=== PATIENT | female | born 1970 | race Caucasian/White ===

== ENCOUNTER 2020-02-27 05:58 | Inpatient (IN) ==
[2020-02-27] MEDS ORDERED: HYDROmorphone 2 MG/1 ML VIAL IV STA (06:08)
[2020-02-27] MEDS ORDERED: PANTOPRAZOLE 40 MG VIAL IV STA (06:08)
[2020-02-27] MEDS ORDERED: SODIUM CHLORIDE 0.9% 2,000 ML IV STA (06:08)
[2020-02-27] MEDS ORDERED: ONDANSETRON 4 MG/2 ML VIAL IV STA (06:08)
[2020-02-27 06:58] LABS: Bacteria,Urine Occasional /HPF (Few); Bilirubin,Urine Negative (Negative); Blood, Urine Negative (Negative); Glucose,Urine (UA) >=500 mg/dL (Negative); Ketones,Urine 20 mg/dL (Negative); Nitrite,Urine Negative (Negative); Protein,Urine Negative; RBC,Urine <1 /HPF (0-4); Squamous Epithelial Cell,Urine Occasional /HPF (0-10); Urine Appearance CLEAR (Clear); Urine Color Yellow (Yellow); Urine Urobilinogen < 2.0 EU/DL (0.2-1.0); WBC,Urine <1 /HPF (0-6)
[2020-02-27 07:40] LABS: Basophils % 0.2 % (0.0-0.8); Hematocrit 43.3 VOL% (35.7-47.0); Immature Granulocytes % 0.4 %; Immature Granulocytes Absolute 0.04 #; Mean Corpuscular HGB Conc 34.6 GM/DL (32-36); Mean Corpuscular Volume 86.8 FL (87-102); Mean Platelet Volume 11.3 FL (9.6-12.0); Monocytes % 2.5 % (1.7-12.7); Neutrophils % 58.9 % (38.7-73.9); Platelet Count 141 T/CUMM (130-400); Red Blood Count 4.99 MC/CUMM (3.8-5.5); Red Cell Distribution Width 12.8 % (9.3-17.3); White Blood Count 10.5 T/CUMM (4-12)
[2020-02-27 07:54] LABS: Albumin 3.8 G/DL (3.4-5.0); Bilirubin,Total 3.5 MG/DL (0.2-1.0); Calcium 8.1 MG/DL (8.5-10.1); Osmolality,Calculated 287.8 MOS/KG (273-304); Total Protein 6.5 G/DL (6.4-8.3)
[2020-02-27 08:05] LABS: Risk Ratio 2.89; VLDL CHOLESTEROL 19.6 MG/DL
[2020-02-27] MEDS ORDERED: GLUCAGON 1 MG VIAL IM PRN (11:04)
[2020-02-27] MEDS ORDERED: ONDANSETRON 4 MG/2 ML VIAL IV PRN (11:04)
[2020-02-27] MEDS ORDERED: DEXTROSE 50% 25 GM/50 ML VIAL IV PRN (11:04)
[2020-02-27] MEDS ORDERED: HYDROmorphone 2 MG/1 ML VIAL IV PRN ×3 (11:13→12:19)
[2020-02-27] MEDS ORDERED: SODIUM CHLORIDE 0.9% 1,000 ML IV SCH (11:30)
[2020-02-27] MEDS: INSULIN LISPRO 100 UNIT/ML SUBCUT SCH ×3 (12:35→21:00)
[2020-02-27] MEDS: PIPERACILLIN/TAZOBACTAM 3,375 MG in SODIUM CHLORIDE 0.9% 100 ML IV SCH ×2 (12:48→20:49)
[2020-02-27] MEDS: SODIUM CHLORIDE 0.9% 1,000 ML IV SCH ×2 (12:48→20:47)
[2020-02-28] MEDS: SODIUM CHLORIDE 0.9% 1,000 ML IV SCH ×3 (05:12→21:45)
[2020-02-28] MEDS: PIPERACILLIN/TAZOBACTAM 3,375 MG in SODIUM CHLORIDE 0.9% 100 ML IV SCH ×3 (05:13→21:51)
[2020-02-28 06:03] LABS: Basophils % 0.2 % (0.0-0.8); Eosinophils # 0.1 10*3/uL (0.0-0.87); Eosinophils % 1.4 % (0.00-10.9); Hematocrit 39.4 VOL% (35.7-47.0); Hemoglobin 13.2 GM/DL (12.0-16.0); Immature Granulocytes % 0.2 %; Immature Granulocytes Absolute 0.02 #; Lymphocytes # 3.8 10*3/uL (1.4-4.0); Lymphocytes % 44.9 % (21.3-54.2); Mean Corpuscular HGB Conc 33.5 GM/DL (32-36); Mean Corpuscular Volume 89.7 FL (87-102); Mean Platelet Volume 11.9 FL (9.6-12.0); Monocytes % 5.6 % (1.7-12.7); Neutrophils % 47.7 % (38.7-73.9); Platelet Count 116 T/CUMM (130-400); Red Blood Count 4.39 MC/CUMM (3.8-5.5); Red Cell Distribution Width 13.1 % (9.3-17.3); White Blood Count 8.4 T/CUMM (4-12)
[2020-02-28 06:31] LABS: Bilirubin,Total 1.1 MG/DL (0.2-1.0); Osmolality,Calculated 281.5 MOS/KG (273-304); Total Protein 5.7 G/DL (6.4-8.3)
[2020-02-28] MEDS ORDERED: cefOXitin 2,000 MG in SYRINGE 1 EACH IV ONE (08:00)
[2020-02-28] MEDS ORDERED: INDOMETHACIN SUPP 50 MG SUPP RECTAL ONE (08:00)
[2020-02-28] MEDS: INSULIN LISPRO 100 UNIT/ML SUBCUT SCH ×4 (08:05→22:06)
[2020-02-28] MEDS: LOSARTAN 25 MG TABLET PO SCH (09:09)
[2020-02-28] MEDS: ASPIRIN EC 81 MG TABLET PO SCH (09:10)
[2020-02-28] MEDS: CITALOPRAM 20 MG TABLET PO SCH (09:10)
[2020-02-28] MEDS ORDERED: POTASSIUM CHLORIDE 20 MEQ TABLET PO ONE (12:00)
[2020-02-28] MEDS ORDERED: TISSUE ADHESIVE 1 EACH APPLICATOR TOP ONE ×2 (12:11→13:47)
[2020-02-28] MEDS ORDERED: BUPIVACAINE MPF 0.25% 30 ML VIAL ONE (12:11)
[2020-02-28] MEDS ORDERED: LIDOCAINE 1%/EPI INJ 20 ML VIAL ONE (12:12)
[2020-02-28] MEDS ORDERED: SUCCINYLCHOLINE 200 MG/10 ML VIAL ONE (12:21)
[2020-02-28] MEDS ORDERED: propofoL 200 MG/20 ML VIAL IV ONE (12:21)
[2020-02-28] MEDS ORDERED: LIDOCAINE 2% 5 ML VIAL ONE (12:21)
[2020-02-28] MEDS ORDERED: ROCURONIUM 50 MG/5 ML VIAL IV ONE (12:21)
[2020-02-28] MEDS ORDERED: fentaNYL 100 MCG/2 ML VIAL ONE ×2 (12:22→12:59)
[2020-02-28] MEDS ORDERED: MIDAZOLAM 2 MG/2 ML VIAL ONE (12:22)
[2020-02-28] MEDS ORDERED: PHENYLEPHRINE 1 MG/10 ML SYRINGE IV ONE (12:59)
[2020-02-28] MEDS ORDERED: GLYCOPYRROLATE 0.4 MG/2 ML VIAL ONE (13:30)
[2020-02-28] MEDS ORDERED: NEOSTIGMINE 10 MG/10 ML VIAL ONE (13:30)
[2020-02-28] MEDS: LACTATED RINGERS 1,000 ML IV SCH (16:56)
[2020-02-28] MEDS: KETOROLAC 0.5% OPH SOLN 5 ML BOTTLE BOTH EYES SCH ×3 (17:03→21:47)
[2020-02-28] MEDS: prednisoLONE ACETATE 1% OPH SUSP 5 ML BOTTLE BOTH EYES SCH ×3 (17:03→21:47)
[2020-02-28] MEDS: OFLOXACIN 0.3% OPH SOLN 5 ML BOTTLE BOTH EYES SCH ×3 (17:03→21:46)
[2020-02-29] MEDS: PIPERACILLIN/TAZOBACTAM 3,375 MG in SODIUM CHLORIDE 0.9% 100 ML IV SCH ×3 (04:07→20:41)
[2020-02-29 06:42] LABS: Basophils % 0.4 % (0.0-0.8); Eosinophils # 0.1 10*3/uL (0.0-0.87); Eosinophils % 0.7 % (0.00-10.9); Hematocrit 39.6 VOL% (35.7-47.0); Hemoglobin 13.2 GM/DL (12.0-16.0); Immature Granulocytes % 0.4 %; Immature Granulocytes Absolute 0.03 #; Lymphocytes # 3.8 10*3/uL (1.4-4.0); Lymphocytes % 45.9 % (21.3-54.2); Mean Corpuscular HGB Conc 33.3 GM/DL (32-36); Mean Corpuscular Volume 89.8 FL (87-102); Mean Platelet Volume 12.2 FL (9.6-12.0); Monocytes % 7.3 % (1.7-12.7); Neutrophils % 45.3 % (38.7-73.9); Platelet Count 132 T/CUMM (130-400); Red Blood Count 4.41 MC/CUMM (3.8-5.5); Red Cell Distribution Width 13.2 % (9.3-17.3); White Blood Count 8.2 T/CUMM (4-12)
[2020-02-29 06:49] LABS: Albumin 2.8 G/DL (3.4-5.0); Bilirubin,Total 2.6 MG/DL (0.2-1.0); Calcium 8.3 MG/DL (8.5-10.1); Osmolality,Calculated 285.3 MOS/KG (273-304); Total Protein 5.8 G/DL (6.4-8.3)
[2020-02-29] MEDS: INSULIN LISPRO 100 UNIT/ML SUBCUT SCH ×4 (08:19→20:44)
[2020-02-29] MEDS: ASPIRIN EC 81 MG TABLET PO SCH (09:57)
[2020-02-29] MEDS: CITALOPRAM 20 MG TABLET PO SCH (09:57)
[2020-02-29] MEDS: OFLOXACIN 0.3% OPH SOLN 5 ML BOTTLE BOTH EYES SCH ×4 (09:59→20:43)
[2020-02-29] MEDS: INSULIN GLARGINE 100 UNIT/ML SUBCUT SCH (09:59)
[2020-02-29] MEDS: KETOROLAC 0.5% OPH SOLN 5 ML BOTTLE BOTH EYES SCH ×4 (09:59→20:43)
[2020-02-29] MEDS: prednisoLONE ACETATE 1% OPH SUSP 5 ML BOTTLE BOTH EYES SCH ×4 (09:59→20:43)
[2020-02-29] MEDS: LOSARTAN 25 MG TABLET PO SCH (10:00)
[2020-02-29] MEDS: ENOXAPARIN 40 MG/0.4 ML SYRINGE SUBCUT SCH (12:15)
[2020-02-29] MEDS: SODIUM CHLORIDE 0.9% 1,000 ML IV SCH (12:15)
[2020-02-29] MEDS: LACTATED RINGERS 1,000 ML IV SCH (14:20)
[2020-03-01] MEDS: SODIUM CHLORIDE 0.9% 1,000 ML IV SCH ×2 (01:17→12:32)
[2020-03-01] MEDS: PIPERACILLIN/TAZOBACTAM 3,375 MG in SODIUM CHLORIDE 0.9% 100 ML IV SCH (05:28)
[2020-03-01 05:58] LABS: Albumin 2.8 G/DL (3.4-5.0); Calcium 8.1 MG/DL (8.5-10.1); Osmolality,Calculated 287.1 MOS/KG (273-304); Total Protein 5.8 G/DL (6.4-8.3)
[2020-03-01] MEDS: INSULIN LISPRO 100 UNIT/ML SUBCUT SCH ×2 (08:19→12:31)
[2020-03-01] MEDS: LOSARTAN 25 MG TABLET PO SCH (09:03)
[2020-03-01] MEDS: CITALOPRAM 20 MG TABLET PO SCH (09:04)
[2020-03-01] MEDS: prednisoLONE ACETATE 1% OPH SUSP 5 ML BOTTLE BOTH EYES SCH (09:05)
[2020-03-01] MEDS: INSULIN GLARGINE 100 UNIT/ML SUBCUT SCH (09:05)
[2020-03-01] MEDS: ASPIRIN EC 81 MG TABLET PO SCH (09:05)
[2020-03-01] MEDS: KETOROLAC 0.5% OPH SOLN 5 ML BOTTLE BOTH EYES SCH (09:05)
[2020-03-01] MEDS: OFLOXACIN 0.3% OPH SOLN 5 ML BOTTLE BOTH EYES SCH (09:05)
[2020-03-01] MEDS: ENOXAPARIN 40 MG/0.4 ML SYRINGE SUBCUT SCH (12:32)
[2020-03-01 12:51] VITALS: BP 141/76
== END 2020-03-01 14:14 | disposition home or self-care (01) | DRG 418 ==
LOC: EDBD → EDUNIT# → N.ED 05:58 → N.EDINP 11:04 → SUATTDRO 11:04 → N.EDINP 13:43 → N.3E 13:51
PROVIDERS: ADMIT Family Medicine; ATTEND Hospitalist
PROC: LAPCHOL (2020-02-28 12:27)

== ENCOUNTER 2021-06-09 01:29 | Observation (INO) ==
[2021-06-09 01:59] LABS: Eosinophils # 0.1 10*3/uL (0.0-0.87); Eosinophils % 0.6 % (0.00-10.9); Red Cell Distribution Width 13.3 % (9.3-17.3)
[2021-06-09 02:26] LABS: Albumin 3.3 G/DL (3.4-5.0); Bilirubin,Total 0.7 MG/DL (0.20-1.00); Calcium 8.6 MG/DL (8.5-10.1); Osmolality,Calculated 271.1 MOS/KG (273-304); Total Protein 6.8 G/DL (6.4-8.2)
[2021-06-09 02:33] LABS: Basophils # 0.1 10*3/uL (0.0-0.2); Basophils % 0.5 % (0.0-0.8); Hematocrit 45.3 VOL% (35.7-47.0); Hemoglobin 16.4 GM/DL (12.0-16.0); Immature Granulocytes % 0.3 %; Immature Granulocytes Absolute 0.06 #; Lymphocytes # 16.9 10*3/uL (1.4-4.0); Lymphocytes % 72.6 % (21.3-54.2); Mean Corpuscular HGB Conc 36.2 GM/DL (32-36); Mean Platelet Volume 11.5 FL (9.6-12.0); Monocytes % 8.8 % (1.7-12.7); Neutrophils % 17.2 % (38.7-73.9); Platelet Count 205 T/CUMM (130-400); Red Blood Count 5.39 MC/CUMM (3.8-5.5); White Blood Count 23.2 T/CUMM (4-12)
[2021-06-09 02:39] LABS: Potassium 2.5 MMOL/L (3.5-5.1)
[2021-06-09 02:45] LABS: Lymphocytes 73 % (20-55); Platelet Estimate Adequate; Segmented Neutrophils 24 % (50-85); Total Cells Counted 100
[2021-06-09] MEDS ORDERED: POTASSIUM CHLORIDE RIDER 20 MEQ/100 ML PREMIX IV STA (03:08)
[2021-06-09] MEDS ORDERED: SODIUM CHLORIDE 0.9% 1,000 ML IV STA (03:09)
[2021-06-09] MEDS: POTASSIUM CHLORIDE RIDER 10 MEQ/100 ML PREMIX IV SCH ×2 (04:03→05:18)
[2021-06-09 04:26] LABS: Bacteria,Urine Occasional /HPF (Few); Mucus,Urine Occasional /LPF (Occasional); RBC,Urine 4 /HPF (0-4); Squamous Epithelial Cell,Urine Occasional /HPF (0-10)
[2021-06-09 04:27] LABS: Glucose,Urine (UA) >1000 mg/dL (Negative); Ketones,Urine 80 mg/dL (Negative); Nitrite,Urine Negative (Negative); Protein,Urine Negative; Urine Appearance Clear (Clear); Urine Color Yellow (Yellow); Urine pH 6.5 (4.5-8.0)
[2021-06-09 04:28] LABS: Bilirubin,Urine Small mg/dL (Negative); Blood, Urine Trace mg/dL (Negative); Urine Urobilinogen 0.2 EU/DL (<2.0)
[2021-06-09] MEDS ORDERED: SODIUM CHLORIDE 0.9% 500 ML IV STA (04:33)
[2021-06-09] MEDS ORDERED: MORPHINE 4 MG/1 ML VIAL IV PRN (05:52)
[2021-06-09] MEDS ORDERED: ONDANSETRON 4 MG/2 ML VIAL IV PRN (05:52)
[2021-06-09] MEDS ORDERED: DEXTROSE 10% 250 ML BAG IV PRN (05:52)
[2021-06-09] MEDS ORDERED: GLUCAGON 1 MG VIAL IM PRN (05:52)
[2021-06-09] MEDS ORDERED: PROMETHAZINE 25 MG/1 ML VIAL IV PRN (05:52)
[2021-06-09] MEDS ORDERED: ACETAMINOPHEN 325 MG TABLET PO PRN (05:52)
[2021-06-09] MEDS ORDERED: hydrALAZINE 20 MG/1 ML VIAL IV PRN (05:52)
[2021-06-09] MEDS ORDERED: POTASSIUM CHLORIDE RIDER 10 MEQ/100 ML PREMIX IV PRN (06:01)
[2021-06-09] MEDS ORDERED: PROMETHAZINE INJ 12.5 MG in SODIUM CHLORIDE 0.9% 50 ML IV PRN (06:24)
[2021-06-09] MEDS: INSULIN LISPRO 100 UNIT/ML SUBCUT SCH ×4 (07:48→22:04)
[2021-06-09] MEDS: SODIUM CHLOR 0.9% KCL 20 MEQ 20 MEQ/1,000 ML BAG IV SCH ×3 (08:45→22:04)
[2021-06-09] MEDS: PANTOPRAZOLE 40 MG TABLET PO SCH (10:07)
[2021-06-09] MEDS ORDERED: KETOROLAC 0.5% OPH SOLN 5 ML BOTTLE BOTH EYES SCH (13:00)
[2021-06-09] MEDS ORDERED: OFLOXACIN 0.3% OPH SOLN 5 ML BOTTLE BOTH EYES SCH (13:00)
[2021-06-09] MEDS ORDERED: prednisoLONE ACETATE 1% OPH SUSP 5 ML BOTTLE BOTH EYES SCH (13:00)
[2021-06-09 14:40] LABS: Calcium 7.3 MG/DL (8.5-10.1); Osmolality,Calculated 283.4 MOS/KG (273-304)
[2021-06-09 14:47] LABS: Potassium 2.5 MMOL/L (3.5-5.1)
[2021-06-09] MEDS: POTASSIUM CHLORIDE 20 MEQ TABLET PO SCH ×2 (15:19→23:03)
[2021-06-09] MEDS ORDERED: ENOXAPARIN 40 MG/0.4 ML SYRINGE SUBCUT SCH (21:00)
[2021-06-10 05:42] LABS: Basophils # 0.1 10*3/uL (0.0-0.2); Basophils % 0.5 % (0.0-0.8); Eosinophils # 0.1 10*3/uL (0.0-0.87); Eosinophils % 1.1 % (0.00-10.9); Hematocrit 37.2 VOL% (35.7-47.0); Immature Granulocytes % 0.3 %; Immature Granulocytes Absolute 0.04 #; Lymphocytes # 10.3 10*3/uL (1.4-4.0); Lymphocytes % 79.7 % (21.3-54.2); Mean Corpuscular HGB Conc 34.9 GM/DL (32-36); Mean Corpuscular Volume 87.5 FL (87-102); Mean Platelet Volume 11.7 FL (9.6-12.0); Monocytes % 3.9 % (1.7-12.7); NRBC # 0.02 10*3/uL; Neutrophils % 14.5 % (38.7-73.9); Platelet Count 166 T/CUMM (130-400); Red Blood Count 4.25 MC/CUMM (3.8-5.5); Red Cell Distribution Width 13.9 % (9.3-17.3); White Blood Count 12.9 T/CUMM (4-12)
[2021-06-10 06:02] LABS: Calcium 7.5 MG/DL (8.5-10.1); Osmolality,Calculated 288.4 MOS/KG (273-304); Potassium 2.9 MMOL/L (3.5-5.1)
[2021-06-10 06:09] LABS: Atypical Lymphocytes Few; Eosinophils 4 % (0-10); Hypochromia Slight; Lymphocytes 62 % (20-55); Microcytosis Slight; Platelet Estimate Adequate; Segmented Neutrophils 31 % (50-85); Smudge Cells Few; Total Cells Counted 100
[2021-06-10] MEDS: POTASSIUM CHLORIDE 20 MEQ TABLET PO SCH (06:11)
[2021-06-10] MEDS: SODIUM CHLOR 0.9% KCL 20 MEQ 20 MEQ/1,000 ML BAG IV SCH (06:11)
[2021-06-10] MEDS: PANTOPRAZOLE 40 MG TABLET PO SCH (08:37)
[2021-06-10] MEDS ORDERED: EZETIMIBE 10 MG TABLET PO SCH (09:00)
[2021-06-10] MEDS ORDERED: GABAPENTIN 100 MG CAPSULE PO SCH (09:00)
[2021-06-10] MEDS ORDERED: LOSARTAN 25 MG TABLET PO SCH (09:00)
[2021-06-10] MEDS ORDERED: ASPIRIN EC 81 MG TABLET PO SCH (09:00)
[2021-06-10] MEDS: INSULIN LISPRO 100 UNIT/ML SUBCUT SCH (09:58)
[2021-06-10 12:15] VITALS: BP 142/83
== END 2021-06-10 12:31 | disposition home or self-care (01) ==
LOC: SUATTDRO → N.EDINP 01:29 → N.ED 01:29 → N.EDINP 20:05 → N.3E 20:15
PROVIDERS: ADMIT Internal Medicine; ATTEND Internal Medicine